=== PATIENT | female | born 1940 | race Caucasian/White ===

== ENCOUNTER 2016-11-05 11:29 | Inpatient (IN) | payer MEDICARE, BC ==
[~2016-11-05 11:29] MED LIST: HYDROCHLOROTHIA25 M1 PO; LEXAPRO20 M2 PO; LOVASTATIN20 MG; METFORMIN HCL500 MG; NORVASC10 M2 PO; PRINIVIL20 M1 PO; SYMBICORT 16010.2 GM; TYLENOL325 M2 PO; WELCHOL625 MG
[2016-11-05 12:09] LABS: BASO % 0.1 % (0-2); EOS % 0.4 % (0-7); EOSINOPHIL ABSOLUTE COUNT 0.1 tho/cmm (0.0-0.7); HCT-HEMATOCRIT 36.2 % (34.0-49.0); HGB-HEMOGLOBIN 11.9 gm/dl (12.0-15.5); IMMATURE GRANULOCYTES ABSOLUTE 0.07 tho/cmm (0-0.03); IMMATURE GRANULOCYTES PERCENT 0.6 % (0-0.3); LYMPH % 14.8 % (20-45); LYMPH ABSOLUTE COUNT 1.8 tho/cmm (0.8-4.5); MCH (MEAN CORPUSCULAR HGB) 28.6 pg (28.0-32.0); MCHC MEAN CORPUSCULAR HGB CONC 32.9 % (32.0-36.0); MEAN PLATELET VOLUME 8.7 cmc (9.4-12.4); MONOCYTE ABSOLUTE COUNT 1.3 tho/cmm (0.0-1.2); NEUTROPHIL ABSOLUTE COUNT 8.7 tho/cmm (1.6-8.0); NEUTROPHIL-AUTOMATED 8.7 tho/cmm (1.6-8.0); NEUTROPHILS % 73.1 % (40-80); PLATELET COUNT 218 tho/cmm (150-450); RED BLOOD COUNT 4.16 mil/cmm (4.00-5.20); RED CELL DISTRIBUTION WIDTH 14.3 % (12.4-16.4); WHITE BLOOD COUNT 11.9 tho/cmm (4.0-10.0)
[2016-11-05 12:30] LABS: ALB/GLOB RATIO 1.1 (0.8-2.0); ALBUMIN 3.4 g/dl (3.5-5.2); ALKALINE PHOSPHATASE 38 U/L (35-104); ALT/SGPT 10 U/L (0-33); ANION GAP 13 mmol/L (5-15); AST/SGOT 14 U/L (0-32); BILIRUBIN,TOTAL 0.5 mg/dl (0-1.0); BLOOD UREA NITROGEN 29 mg/dl (6-25); CALCIUM 9.3 mg/dl (8.6-10.2); CARBON DIOXIDE-VENOUS 28 mmol/L (22-29); CHLORIDE 102 mmol/L (98-110); GLUCOSE 134 mg/dl (65-120); POTASSIUM 3.2 mmol/L (3.4-5.0); SODIUM 143 mmol/L (135-146); eGFR VALUE FOR BLACK >60 mL/Min
[2016-11-05] MEDS ORDERED: PROAIR HFA8.5 GM INH (12:32)
[2016-11-05] MEDS ORDERED: ADVAIR HFA 1151 PUFF INH (12:33)
[2016-11-05] MEDS ORDERED: GLUCOTROL XL10 M1 PO (12:33)
[2016-11-05] MEDS ORDERED: ASPIR 8181 M1 PO (12:34)
[2016-11-05] MEDS ORDERED: TOPROL XL50 M1 PO (12:34)
[2016-11-05] MEDS ORDERED: LOVASTATIN20 M2 PO (12:34)
[2016-11-05] MEDS ORDERED: VITAMIN D31000 UNI3 PO (12:34)
[2016-11-05] MEDS ORDERED: TRESIBA FL100 UNIT/1 SC (12:36)
[2016-11-05 12:42] LABS: ABG CO2 ARTERIAL 30 mmol/L (21-27); ARTERIAL BLD GAS O2 SATURATION 92 % (95-98); ARTERIAL BLOOD GAS PCO2 40 mmHg (32-45); ARTERIAL PO2 59 mmHg (70-100); BICARBONATE 28 mmol/L (21-28); BLOOD GAS BASE EXCESS 5 mM/L (-/+3); PH 7.47 Units (7.35-7.45)
[2016-11-05 13:03] LABS: PROCALCITONIN <0.05 ng/ml (0.05-0.09)
[2016-11-05] MEDS ORDERED: VITAMIN D32000 UNI3 PO (17:08)
[2016-11-05] MEDS ORDERED: LISINOPRIL40 M1 PO (17:10)
[2016-11-06 06:08] LABS: ANION GAP 14 mmol/L (5-15); BLOOD UREA NITROGEN 29 mg/dl (6-25); CALCIUM 8.5 mg/dl (8.6-10.2); CARBON DIOXIDE-VENOUS 25 mmol/L (22-29); CHLORIDE 101 mmol/L (98-110); CREATININE 0.99 mg/dl (0.67-1.17); POTASSIUM 3.4 mmol/L (3.4-5.0); SODIUM 140 mmol/L (135-146); eGFR VALUE FOR BLACK >60 mL/Min
[2016-11-06 06:09] LABS: GLUCOSE 259 mg/dl (65-120)
[2016-11-06 06:18] LABS: BASO % 0.1 % (0-2); HCT-HEMATOCRIT 33.8 % (34.0-49.0); IMMATURE GRANULOCYTES ABSOLUTE 0.06 tho/cmm (0-0.03); IMMATURE GRANULOCYTES PERCENT 0.7 % (0-0.3); LYMPH % 10.7 % (20-45); MCH (MEAN CORPUSCULAR HGB) 28.2 pg (28.0-32.0); MCHC MEAN CORPUSCULAR HGB CONC 32.5 % (32.0-36.0); MCV (MEAN CELL VOLUME) 86.7 fl (82.0-96.0); MEAN PLATELET VOLUME 9.4 cmc (9.4-12.4); MONOCYTE ABSOLUTE COUNT 0.6 tho/cmm (0.0-1.2); NEUTROPHIL ABSOLUTE COUNT 7.5 tho/cmm (1.6-8.0); NEUTROPHIL-AUTOMATED 7.5 tho/cmm (1.6-8.0); NEUTROPHILS % 81.5 % (40-80); PLATELET COUNT 204 tho/cmm (150-450); RED CELL DISTRIBUTION WIDTH 14.5 % (12.4-16.4); WHITE BLOOD COUNT 9.2 tho/cmm (4.0-10.0)
[2016-11-07 05:21] LABS: EOS % 0.2 % (0-7); HCT-HEMATOCRIT 35.1 % (34.0-49.0); HGB-HEMOGLOBIN 11.4 gm/dl (12.0-15.5); LYMPH % 22.2 % (20-45); LYMPH ABSOLUTE COUNT 2.1 tho/cmm (0.8-4.5); MCH (MEAN CORPUSCULAR HGB) 28.4 pg (28.0-32.0); MCHC MEAN CORPUSCULAR HGB CONC 32.5 % (32.0-36.0); MCV (MEAN CELL VOLUME) 87.3 fl (82.0-96.0); MONO % 6.7 % (0-12); MONOCYTE ABSOLUTE COUNT 0.6 tho/cmm (0.0-1.2); NEUTROPHIL ABSOLUTE COUNT 6.7 tho/cmm (1.6-8.0); NEUTROPHIL-AUTOMATED 6.7 tho/cmm (1.6-8.0); NEUTROPHILS % 69.9 % (40-80); PLATELET COUNT 222 tho/cmm (150-450); RED BLOOD COUNT 4.02 mil/cmm (4.00-5.20); RED CELL DISTRIBUTION WIDTH 14.5 % (12.4-16.4); WHITE BLOOD COUNT 9.6 tho/cmm (4.0-10.0)
[2016-11-07 06:19] LABS: BLOOD UREA NITROGEN 31 mg/dl (6-25); CALCIUM 8.7 mg/dl (8.6-10.2); CARBON DIOXIDE-VENOUS 28 mmol/L (22-29); CHLORIDE 103 mmol/L (98-110); CREATININE 1.07 mg/dl (0.67-1.17); GLUCOSE 163 mg/dl (65-120); IRON 55 ug/dl (37-145); IRON BINDING CAPACITY 267 ug/dl (250-400); MAGNESIUM 1.7 mg/dl (1.7-2.5); POTASSIUM 3.6 mmol/L (3.4-5.0); SODIUM 143 mmol/L (135-146); UNSATURATED IRON BINDING CAP. 212 ug/dl (112-346); eGFR VALUE FOR BLACK >60 mL/Min
[2016-11-07 06:29] LABS: FERRITIN 238 ng/ml (10-150)
[2016-11-07 08:11] LABS: ANION GAP 12 mmol/L (5-15)
[2016-11-07] MEDS ORDERED: PREDNISONE20 M1 PO (14:32)
[2016-11-07] MEDS ORDERED: ELIQUIS5 M1 PO (14:34)
[2016-12-20] MEDS ORDERED: MUCINEX600 M1 PO (14:28)
[2016-12-20] MEDS ORDERED: ADVAIR 25028 BLISTE1 (14:31)
[2016-12-20] MEDS ORDERED: PREDNISONE20 M1 PO ×2 (14:32→14:33)
[2016-12-20] MEDS ORDERED: PREDNISONE10 M1 PO (14:33)
== END 2016-11-07 15:45 | DRG 152 ==
LOC: EDMED 11:29 → EMR2 14:47 → CAR1 16:40 → 5WE 11-06 17:53
PROVIDERS: Emergency Medicine; Family Medicine; Internal Medicine; ADMIT Hospitalist
PROC: 3E0F7GC Introduction of Other Therapeutic Substance into Respiratory Tract, Via Natural or Artificial Opening (ICD-10-PCS; principal; 2016-11-05)
PROC: B246ZZZ Ultrasonography of Right and Left Heart (ICD-10-PCS; 2016-11-06)
DX: J06.9 Acute upper respiratory infection, unspecified (principal); J96.01 Acute respiratory failure with hypoxia; J45.901 Unspecified asthma with (acute) exacerbation; B97.4 Respiratory syncytial virus as the cause of diseases classified elsewhere; I11.0 Hypertensive heart disease with heart failure; I50.9 Heart failure, unspecified; Z68.41 Body mass index [BMI] 40.0-44.9, adult; I48.91 Unspecified atrial fibrillation; E87.6 Hypokalemia; E11.9 Type 2 diabetes mellitus without complications; E66.9 Obesity, unspecified; F32.9 Major depressive disorder, single episode, unspecified; Z85.038 Personal history of other malignant neoplasm of large intestine; Z86.718 Personal history of other venous thrombosis and embolism; Z79.01 Long term (current) use of anticoagulants; Z90.49 Acquired absence of other specified parts of digestive tract; Z83.6 Family history of other diseases of the respiratory system; Z82.49 Family history of ischemic heart disease and other diseases of the circulatory system; I07.1 Rheumatic tricuspid insufficiency; D72.829 Elevated white blood cell count, unspecified; E78.5 Hyperlipidemia, unspecified; Z79.4 Long term (current) use of insulin
CPT/HCPCS: G0378; G8978-GP-CK; G8979-GP-CJ; J1815; J2930; J3420; J3480; J7030; J7512

== ENCOUNTER 2017-03-21 10:42 | Inpatient (IN) | payer MEDICARE, BC ==
[~2017-03-21 10:42] MED LIST changes: +ADVAIR 25028 BLISTE1; +ADVAIR HFA 1151 PUFF INH; +ASPIR 8181 M1 PO; +ELIQUIS5 M1 PO; +GLUCOTROL XL10 M1 PO; +LISINOPRIL40 M1 PO; +LOVASTATIN20 M2 PO; +MUCINEX600 M1 PO; +PREDNISONE10 M1 PO; +PREDNISONE20 M1 PO; +PROAIR HFA8.5 GM INH; +TOPROL XL50 M1 PO; +TRESIBA FL100 UNIT/1 SC; +VITAMIN D31000 UNI3 PO; +VITAMIN D32000 UNI3 PO
[2017-03-21 11:22] LABS: BASO ABSOLUTE COUNT 0.1 tho/cmm (0.0-0.2); EOS % 8.4 % (0-7); EOSINOPHIL ABSOLUTE COUNT 0.4 tho/cmm (0.0-0.7); HCT-HEMATOCRIT 35.2 % (34.0-49.0); HGB-HEMOGLOBIN 11.2 gm/dl (12.0-15.5); IMMATURE GRANULOCYTES ABSOLUTE 0.01 tho/cmm (0-0.03); IMMATURE GRANULOCYTES PERCENT 0.2 % (0-0.3); LYMPH % 28.2 % (20-45); LYMPH ABSOLUTE COUNT 1.5 tho/cmm (0.8-4.5); MCH (MEAN CORPUSCULAR HGB) 27.9 pg (28.0-32.0); MCHC MEAN CORPUSCULAR HGB CONC 31.8 % (32.0-36.0); MCV (MEAN CELL VOLUME) 87.8 fl (82.0-96.0); MEAN PLATELET VOLUME 8.7 cmc (9.4-12.4); MONO % 12.3 % (0-12); MONOCYTE ABSOLUTE COUNT 0.6 tho/cmm (0.0-1.2); NEUTROPHIL ABSOLUTE COUNT 2.6 tho/cmm (1.6-8.0); NEUTROPHIL-AUTOMATED 2.6 tho/cmm (1.6-8.0); NEUTROPHILS % 49.9 % (40-80); PLATELET COUNT 259 tho/cmm (150-450); RED BLOOD COUNT 4.01 mil/cmm (4.00-5.20); RED CELL DISTRIBUTION WIDTH 13.3 % (12.4-16.4); WHITE BLOOD COUNT 5.2 tho/cmm (4.0-10.0)
[2017-03-21 11:37] LABS: ALB/GLOB RATIO 0.7 (0.8-2.0); ALBUMIN 3.2 g/dl (3.5-5.0); ALKALINE PHOSPHATASE 43 U/L (33-138); ALT/SGPT 12 U/L (12-78); ANION GAP 12 mmol/L (0-20); AST/SGOT 12 U/L (10-40); BILIRUBIN,TOTAL 0.5 mg/dl (0-1.5); BLOOD UREA NITROGEN 30 mg/dl (6-24); CALCIUM 12.3 mg/dl (8.5-10.5); CARBON DIOXIDE-VENOUS 29 mmol/L (22-32); CHLORIDE 105 mmol/l (96-110); POTASSIUM 3.4 mmol/L (3.7-5.1); SODIUM 143 mmol/L (135-145); eGFR VALUE FOR BLACK 22 mL/Min
[2017-03-21 11:47] LABS: GLUCOSE 64 mg/dL (70-110)
[2017-03-21] MEDS ORDERED: SYNTHROID75 MC1 PO (12:03)
[2017-03-21] MEDS ORDERED: B-12500 MC1 PO (12:05)
[2017-03-21] MEDS ORDERED: ZOVIRAX30 GM TP (12:08)
[2017-03-21] MEDS ORDERED: ALBUTEROL2.5 MG/3 M INH (12:12)
[2017-03-21] MEDS ORDERED: SYMBICORT 160-1 PUFF INH ×2 (12:12→12:13)
[2017-03-21 12:45] LABS: URINE BILIRUBIN NEGATIVE (NEG); URINE BLOOD SMALL (NEG); URINE GLUCOSE (UA) NEGATIVE (NEG); URINE KETONE NEGATIVE (NEG); URINE LEUKOCYTE ESTERASE NEGATIVE (NEG); URINE NITRITE NEGATIVE (NEG); URINE PROTEIN SMALL (NEG); URINE SPECIFIC GRAVITY 1.025 (1.003-1.030)
[2017-03-21 12:47] LABS: URINE APPEARANCE CLEAR; URINE COLOR DARK YELLOW
[2017-03-21 13:01] LABS: URINE EPITHELIAL CELLS 0 /[HPF] (0-10); URINE RBC 0 /[HPF] (0-5)
[2017-03-21 16:04] LABS: MAGNESIUM 1.4 mg/dl (1.8-2.6); PHOSPHOROUS 3.5 mg/dl (2.5-4.9)
[2017-03-21 21:41] LABS: ALB/GLOB RATIO 0.9 (0.8-2.0); ALBUMIN 3.2 g/dl (3.5-5.0); BILIRUBIN,DIRECT 0.2 mg/dl (0.0-0.3); BILIRUBIN,INDIRECT 0.4 mg/dL (0.0-1.0); BILIRUBIN,TOTAL 0.6 mg/dl (0-1.5)
[2017-03-22 05:10] LABS: BASO % 0.6 % (0-2); EOS % 9.1 % (0-7); EOSINOPHIL ABSOLUTE COUNT 0.4 tho/cmm (0.0-0.7); HCT-HEMATOCRIT 32.9 % (34.0-49.0); HGB-HEMOGLOBIN 10.5 gm/dl (12.0-15.5); IMMATURE GRANULOCYTES ABSOLUTE 0.01 tho/cmm (0-0.03); IMMATURE GRANULOCYTES PERCENT 0.2 % (0-0.3); LYMPH % 31.3 % (20-45); LYMPH ABSOLUTE COUNT 1.5 tho/cmm (0.8-4.5); MCH (MEAN CORPUSCULAR HGB) 27.8 pg (28.0-32.0); MCHC MEAN CORPUSCULAR HGB CONC 31.9 % (32.0-36.0); MEAN PLATELET VOLUME 8.4 cmc (9.4-12.4); MONO % 14.9 % (0-12); MONOCYTE ABSOLUTE COUNT 0.7 tho/cmm (0.0-1.2); NEUTROPHILS % 43.9 % (40-80); PLATELET COUNT 222 tho/cmm (150-450); RED BLOOD COUNT 3.78 mil/cmm (4.00-5.20); RED CELL DISTRIBUTION WIDTH 13.3 % (12.4-16.4); WHITE BLOOD COUNT 4.6 tho/cmm (4.0-10.0)
[2017-03-22 05:20] LABS: ALB/GLOB RATIO 0.8 (0.8-2.0); ALBUMIN 2.9 g/dl (3.5-5.0); ALKALINE PHOSPHATASE 41 U/L (33-138); ALT/SGPT 10 U/L (12-78); ANION GAP 12 mmol/L (0-20); AST/SGOT 15 U/L (10-40); BILIRUBIN,TOTAL 0.6 mg/dl (0-1.5); BLOOD UREA NITROGEN 26 mg/dl (6-24); CALCIUM 11.4 mg/dl (8.5-10.5); CARBON DIOXIDE-VENOUS 30 mmol/L (22-32); CHLORIDE 107 mmol/l (96-110); CREATININE 2.27 mg/dl (0.50-1.10); GLUCOSE 95 mg/dL (70-110); POTASSIUM 3.1 mmol/L (3.7-5.1); SODIUM 146 mmol/L (135-145); eGFR VALUE FOR BLACK 23 mL/Min
[2017-03-22 15:59] LABS: ANION GAP 12 mmol/L (0-20); BLOOD UREA NITROGEN 25 mg/dl (6-24); CALCIUM 11.7 mg/dl (8.5-10.5); CARBON DIOXIDE-VENOUS 29 mmol/L (22-32); CHLORIDE 104 mmol/l (96-110); CREATININE 2.23 mg/dl (0.50-1.10); GLUCOSE 131 mg/dL (70-110); POTASSIUM 3.3 mmol/L (3.7-5.1); SODIUM 142 mmol/L (135-145); eGFR VALUE FOR BLACK 24 mL/Min
--- NOTE | 2017-03-22 21:03 | NUR ---
VIRTUAL CARE NOTE: ASSESSMENT DEFERRED, PT. SLEEPING.
[2017-03-23 05:32] LABS: ALBUMIN 2.9 g/dl (3.5-5.0); ANION GAP 15 mmol/L (0-20); BLOOD UREA NITROGEN 23 mg/dl (6-24); CARBON DIOXIDE-VENOUS 28 mmol/L (22-32); CHLORIDE 106 mmol/l (96-110); CREATININE 2.15 mg/dl (0.50-1.10); GLUCOSE 92 mg/dL (70-110); MAGNESIUM 2.1 mg/dl (1.8-2.6); PHOSPHOROUS 2.9 mg/dl (2.5-4.9); POTASSIUM 3.6 mmol/L (3.7-5.1); SODIUM 145 mmol/L (135-145); eGFR VALUE FOR BLACK 25 mL/Min
[2017-03-23 14:44] LABS: BLOOD UREA NITROGEN 22 mg/dl (6-24); CALCIUM 10.4 mg/dl (8.5-10.5); CARBON DIOXIDE-VENOUS 24 mmol/L (22-32); CHLORIDE 106 mmol/l (96-110); CREATININE 2.01 mg/dl (0.50-1.10); SODIUM 140 mmol/L (135-145); eGFR VALUE FOR BLACK 27 mL/Min
[2017-03-23 14:49] LABS: ANION GAP 15 mmol/L (0-20); GLUCOSE 144 mg/dL (70-110); POTASSIUM 4.5 mmol/L (3.7-5.1)
[2017-03-24 06:48] LABS: ALBUMIN 3.1 g/dl (3.5-5.0); ANION GAP 12 mmol/L (0-20); BLOOD UREA NITROGEN 19 mg/dl (6-24); CALCIUM 10.8 mg/dl (8.5-10.5); CARBON DIOXIDE-VENOUS 27 mmol/L (22-32); CHLORIDE 108 mmol/l (96-110); CREATININE 1.98 mg/dl (0.50-1.10); GLUCOSE 103 mg/dL (70-110); PHOSPHOROUS 2.9 mg/dl (2.5-4.9); SODIUM 143 mmol/L (135-145); eGFR VALUE FOR BLACK 27 mL/Min
--- NOTE | 2017-03-24 20:17 | NUR ---
VIRTUAL CARE NOTE: PT. UP IN HER CHAIR, STATES EVER SINCE SHE GOT SOME MEDICATION TO MAKE HER PEE AND MAYBE SOME OTHERS SHE'S FELT NAUSEATED AND DIDN'T WANT TO EAT SUPPER. STATES HAS BEEN WALKING PRIOR AND FEELING STRONGER IN THAT ASPECT. DENIES PAIN. RN PAGED ON UNIT FOR MEDS. EDUCATION REVIEWED REGARDING FALL RISK BANDS. PT. UNDERSTANDS TO CALL FOR HELP PRIOR TO GETTING UP. INSTRUCTED TO CALL FOR FUTURE NEEDS. STATES VERBAL UNDERSTANDING.
[2017-03-25 06:02] LABS: ANION GAP 11 mmol/L (0-20); BLOOD UREA NITROGEN 21 mg/dl (6-24); CALCIUM 10.3 mg/dl (8.5-10.5); CARBON DIOXIDE-VENOUS 28 mmol/L (22-32); CHLORIDE 107 mmol/l (96-110); CREATININE 1.91 mg/dl (0.50-1.10); GLUCOSE 134 mg/dL (70-110); MAGNESIUM 1.5 mg/dl (1.8-2.6); PHOSPHOROUS 3.5 mg/dl (2.5-4.9); POTASSIUM 3.9 mmol/L (3.7-5.1); SODIUM 142 mmol/L (135-145); eGFR VALUE FOR BLACK 29 mL/Min
--- NOTE | 2017-03-25 21:29 | NUR ---
VIRTUAL CARE NOTE: ASSESSMENT DEFERRED. PT. SLEEPING.
[2017-03-26 05:05] LABS: ANION GAP 14 mmol/L (0-20); BLOOD UREA NITROGEN 17 mg/dl (6-24); CALCIUM 9.6 mg/dl (8.5-10.5); CARBON DIOXIDE-VENOUS 26 mmol/L (22-32); CHLORIDE 106 mmol/l (96-110); CREATININE 1.69 mg/dl (0.50-1.10); GLUCOSE 166 mg/dL (70-110); MAGNESIUM 1.9 mg/dl (1.8-2.6); PHOSPHOROUS 2.8 mg/dl (2.5-4.9); POTASSIUM 3.6 mmol/L (3.7-5.1); SODIUM 142 mmol/L (135-145); eGFR VALUE FOR BLACK 33 mL/Min
[2017-03-27 05:45] LABS: ANION GAP 9 mmol/L (0-20); BLOOD UREA NITROGEN 20 mg/dl (6-24); CALCIUM 9.3 mg/dl (8.5-10.5); CARBON DIOXIDE-VENOUS 25 mmol/L (22-32); CHLORIDE 109 mmol/l (96-110); CREATININE 1.65 mg/dl (0.50-1.10); GLUCOSE 160 mg/dL (70-110); MAGNESIUM 1.8 mg/dl (1.8-2.6); PHOSPHOROUS 2.7 mg/dl (2.5-4.9); POTASSIUM 3.4 mmol/L (3.7-5.1); SODIUM 140 mmol/L (135-145); eGFR VALUE FOR BLACK 34 mL/Min
[2017-03-27] MEDS ORDERED: STOP HOME MEDICATION (15:25)
--- NOTE | 2017-03-27 17:19 | NUR ---
VIRTUAL CARE NOTE: PT DRESSED SITTING ON CHAIR, DAUGHTER AT BEDSIDE READY FOR DISCHARGE TEACHING. INFORMATION GIVEN TO PT, ALL QUESTIONS ANSWERED. PT AND DAUGHTER DENIES FURTHER QUESTIONS. FLOOR NURSE WAS INFORMED FOR DISCHARGE TEACHING DONE.
[2017-03-28 17:44] LABS: Angiotensin-Converting Enzyme 10 U/L (4-60)
== END 2017-03-27 17:20 | disposition home health service (06) | DRG 640 ==
LOC: EDMED 10:42 → EMR2 15:05 → 5WD 18:41
PROVIDERS: Emergency Medicine; Internal Medicine; Internal Medicine Nephrology; Nurse Practitioner Acute Care; ADMIT Hospitalist
DX: E83.52 Hypercalcemia (principal); G93.40 Encephalopathy, unspecified; N17.9 Acute kidney failure, unspecified; I48.0 Paroxysmal atrial fibrillation; E87.0 Hyperosmolality and hypernatremia; E11.22 Type 2 diabetes mellitus with diabetic chronic kidney disease; E86.0 Dehydration; R00.1 Bradycardia, unspecified; E11.649 Type 2 diabetes mellitus with hypoglycemia without coma; I12.9 Hypertensive chronic kidney disease with stage 1 through stage 4 chronic kidney disease, or unspecified chronic kidney disease; Z68.41 Body mass index [BMI] 40.0-44.9, adult; E83.42 Hypomagnesemia; E78.5 Hyperlipidemia, unspecified; Z86.718 Personal history of other venous thrombosis and embolism; E03.9 Hypothyroidism, unspecified; J45.909 Unspecified asthma, uncomplicated; Z85.038 Personal history of other malignant neoplasm of large intestine; Z79.82 Long term (current) use of aspirin; Z90.49 Acquired absence of other specified parts of digestive tract; Z79.4 Long term (current) use of insulin; N18.3 Chronic kidney disease, stage 3 (moderate); D64.9 Anemia, unspecified; M25.552 Pain in left hip; E66.01 Morbid (severe) obesity due to excess calories; R91.8 Other nonspecific abnormal finding of lung field; R59.1 Generalized enlarged lymph nodes; E87.6 Hypokalemia
CPT/HCPCS: A9503; J0630; J1650; J1815; J1940; J3475; J3489; J7030; J7050; P9612